=== PATIENT | male | born 1960 | race Caucasian/White ===

== ENCOUNTER → 2020-05-29 | Outpatient (CLI) | payer BC, OTHER | END | disposition home or self-care (01) | LOC: CVU 10:50 | PROVIDERS: ATTEND Internal Medicine Cardiovascular Disease | DX: I48.91 Unspecified atrial fibrillation (principal) | CPT/HCPCS: 93306 ==

== ENCOUNTER 2020-11-20 11:27 | Inpatient (IN) | payer OTHER ==
[~2020-11-20] VITALS: Ht 198.1 cm; Wt 120.0 kg
[2020-11-20] MEDS ORDERED: FLEC50TA25 PO (12:24)
[2020-11-20] MEDS ORDERED: RIVA20TA PO (12:24)
[2020-11-20 12:48] LABS: ANION GAP 10 mmol/L (5-15); CALCIUM 8.9 mg/dL (8.5-10.1); CHLORIDE 109 mmol/L (98-107)
[2020-11-20 12:49] LABS: CREATININE 0.84 mg/dL (0.7-1.3)
[2020-11-20] MEDS ORDERED: SODIUM CHLORIDE 0.9% 1,000 ML IV ONE (13:00)
[2020-11-20 15:27] LABS: ALANINE AMINOTRANSFERASE 31 U/L (12-78); ALBUMIN 4.5 g/dL (3.4-5.0)
[2020-11-20 15:29] LABS: ALKALINE PHOSPHATASE 111 U/L (45-117); BILIRUBIN,TOTAL 0.8 mg/dL (0.2-1.0); TOTAL PROTEIN 7.5 g/dL (6.4-8.2)
[2020-11-20 20:22] VITALS: BP 137/68
[2020-11-20] MEDS: SODIUM CHLORIDE FLUSH 10ML SYR IVF SCH (21:46)
[2020-11-21 03:16] VITALS: BP 126/78
[2020-11-21 07:05] VITALS: BP 153/81
[2020-11-21] MEDS: SODIUM CHLORIDE FLUSH 10ML SYR IVF SCH (08:39)
[2020-11-21] MEDS ORDERED: RIVAROXABAN 20 MG TABLET PO SCH (09:00)
[2020-11-21 14:05] VITALS: BP 148/80
== END 2020-11-21 14:53 | disposition home or self-care (01) | DRG 309 ==
LOC: CACL 11:27 → ORIP 13:29 → 5SO 14:32 → DCLOUNGE 11-21 14:47
PROVIDERS: ADMIT Internal Medicine Cardiovascular Disease; ATTEND Internal Medicine Cardiovascular Disease
PROC: 5A2204Z Restoration of Cardiac Rhythm, Single (ICD-10-PCS; principal; 2020-11-20 12:30)
DX: I48.92 Unspecified atrial flutter (principal); G45.9 Transient cerebral ischemic attack, unspecified; R47.01 Aphasia; I48.91 Unspecified atrial fibrillation; Z79.01 Long term (current) use of anticoagulants; Z87.891 Personal history of nicotine dependence
CPT/HCPCS: 36415; 70450; 70551; 80053; 82962; 93005; 93306; 93880; G0378